=== PATIENT | female | born 1960 | race Caucasian/White ===

== ENCOUNTER 2017-06-18 14:52 | Inpatient (IN) | payer OTHER ==
[2017-06-18 17:07] VITALS: BMI 20.1
--- NOTE | 2017-06-18 20:59 | HP ---
CIWA Score - CIWA Score Nausea/Vomitin-Mild Nausea/No Vomiting Muscle Tremors: 3 Anxiety: 2 Agitation: 2 Paroxysmal Sweats: 3 Orientation: 0-Oriented Tacttile Disturbances: 0-None Auditory Disturbances: 1-Very Mild Visual Disturbances: 1-Very Mild Sensitivity Headache: 1-Very Mild CIWA-Ar Total Score: 14 Admission ROS S - HPI Chief Complaint: WITHDRAWAL SYMPTOMS Allergies/Adverse Reactions: Allergies Allergy/AdvReac Type Severity Reaction Status Date / Time No Known Allergies Allergy Verified 06/18/17 20:19 History of Present Illness: 57 Y.O. WOMAN WITH AN EXTENSIVE HISTORY OF ALCOHOL DEPENDENCE IS HERE SEEKING DETOX. SHE WAS LAST HERE IN 09/2016. SHE REPORTS HER LONGEST PERIOD OF SOBRIETY HAS BEEN 3 YEARS. SHE IS CURRENTLY ENROLLED IN [facility]. Exam Limitations: No Limitations - Ebola screening Have you traveled outside of the country in the last 21 days: No Have you been sick,other than usual withdrawal symptoms: No - Review of Systems Constitutional: Chills, Diaphoresis, Loss of Appetite, Changes in sleep, Unintentional Wgt. Loss EENT: reports: Blurred Vision, Double Vision, Tearing, Nose Congestion Respiratory: reports: No Symptoms reported Cardiac: reports: No Symptoms Reported GI: reports: No Symptoms Reported : reports: No Symptoms Reported Musculoskeletal: reports: No Symptoms Reported Integumentary: reports: No Symptoms Reported Neuro: reports: Headache, Tremors Endocrine: reports: No Symptoms Reported Hematology: reports: No Symptoms Reported Psychiatric: reports: Mood/Affect Appropiate, Orientated x3, other (INSOMNIA) Other Systems: Reviewed and Negative Patient History - Patient Medical History Hx Anemia: No Hx Asthma: Yes Hx Chronic Obstructive Pulmonary Disease (COPD): No Hx Cancer: No Hx Cardiac Disorders: No Hx Congestive Heart Failure: No Hx Hypertension: Yes (COZAAR) Hx Hypercholesterolemia: No Hx Pacemaker: No HX Cerebrovascular Accident: No Hx Seizures: No Hx Dementia: No Hx Diabetes: No Hx Gastrointestinal Disorders: No Hx Liver Disease: No Hx Genitourinary Disorders: No Hx Sexually Transmitted Disorders: Yes (SYPHILLIS-TREATED) Hx Renal Disease (ESRD): No Hx Thyroid Disease: Yes (HYPERTHYROIDISM) Hx Human Immunodeficiency Virus (HIV): No (last 03/17 negative) Hx Hepatitis C: No Hx Depression: Yes Hx Suicide Attempt: No Hx Bipolar Disorder: No Hx Schizophrenia: No - Patient Surgical History Past Surgical History: No Hx Neurologic Surgery: No Hx Cataract Extraction: No Hx Cardiac Surgery: No Hx Lung Surgery: No Hx Breast Surgery: No Hx Breast Biopsy: No Hx Abdominal Surgery: No Hx Appendectomy: No Hx Cholecystectomy: No Hx Genitourinary Surgery: No Hx Section: No Hx Orthopedic Surgery: No Anesthesia Reaction: No - PPD History Previous Implant?: Yes Documented Results: Negative w/proof Date: 09/14/16 Results: 0 PPD to be Administered?: No - Reproductive History Patient is a Female of Child Bearing Age (11 -55 yrs old): No - Smoking Cessation Smoking history: Current every day smoker Have you smoked in the past 12 months: Yes Aproximately how many cigarettes per day: 2 Hx Chewing Tobacco Use: No Initiated information on smoking cessation: Yes 'Breaking Loose' booklet given: 06/18/17 - Substance & Tx. History Hx Alcohol Use: Yes Hx Substance Use: Yes Substance Use Type: Alcohol, Cocaine Hx Substance Use Treatment: Yes (LAST DETOX: 09/2016; DENIES GOING TO REHAB EVER ) - Substances Abused Alcohol Route: Oral Frequency: Daily Amount used: liquor- 2 pints, beer- 1 six pack Age of first use: 15 Date of Last Use: 06/17/17 Cocaine Route: Smoking Frequency: Daily Amount used: 6 bags Age of first use: 37 Date of Last Use: 06/17/17 Family Disease History - Family Disease History Family History: Denies Admission Physical Exam BHS - Vital Signs Vital Signs: Vital Signs - 24 hr 06/18/17 17:02 Temperature 98.3 F Pulse Rate 90 Respiratory 16 Rate Blood Pressure 220/100 - Physical General Appearance: Yes: Thin, Tremorous, Anxious HEENTM: Yes: Hearing grossly Normal, Normocephalic, Normal Voice Respiratory: Yes: Chest Non-Tender, Lungs Clear, Normal Breath Sounds, No Respiratory Distress, No Accessory Muscle Use Neck: Yes: No masses,lesions,Nodules Breast: Yes: Breast Exam Deferred Cardiology: Yes: Regular Rhythm, Regular Rate Abdominal: Yes: Non Tender, Flat, Soft Genitourinary: Yes: Other (NO COMPLAINTS REPORTED) Back: Yes: Normal Inspection Musculoskeletal: Yes: Gait Steady, Pelvis Stable Extremities: Yes: Normal Capillary Refill, Normal Inspection, Normal Range of Motion, Non-Tender Neurological: Yes: Alert, Normal Mood/Affect, Normal Response Integumentary: Yes: Normal Color, Dry, Warm Lymphatic: Yes: Within Normal Limits - Diagnostic (1) Alcohol dependence with uncomplicated withdrawal Current Visit: Yes Status: Chronic (2) HTN (hypertension) Current Visit: Yes Status: Chronic Qualifiers: Hypertension type: essential hypertension Qualified Code(s): I10 - Essential (primary) hypertension (3) Hyperthyroidism Current Visit: Yes Status: Chronic (4) Opioid dependence on agonist therapy Current Visit: Yes Status: Chronic Cleared for Admission [facility] - Detox or Rehab [facility] Level of Care: Medically Managed Detox Regimen/Protocol: Librium [facility] Breath Alcohol Content Breath Alcohol Content: 0 Urine Pregancy Test - Result Urine Test Results: Negative- NO Line Present Urine Drug Screen - Results Drug Screen Negative: No Urine Drug Screen Results: JIMMY-Cocaine, MTD-Methadone
[2017-06-18] MEDS ORDERED: guaiFENesin/D-METHORPHAN HB 10 ML UNIT-DOSE CUPS PO PRN (21:02)
[2017-06-18] MEDS ORDERED: MAG HYDROX/AL HYDROX/SIMETH 30 ML UNIT-DOSE CUP PO PRN (21:02)
[2017-06-18] MEDS ORDERED: ACETAMINOPHEN 325 MG TABLET (FP) PO PRN (21:02)
[2017-06-18] MEDS ORDERED: MAGNESIUM HYDROX 2400MG/30ML ORAL SUSPENSION 30 ML CUP PO PRN (21:02)
[2017-06-18] MEDS ORDERED: P-EPHED 60MG/TRIPROLIDI 2.5MG TABLET PO PRN (21:02)
[2017-06-18] MEDS ORDERED: LOPERAMIDE HCL 2 MG CAPSULE PO PRN (21:02)
[2017-06-18] MEDS ORDERED: chlordiazePOXIDE HCL 25 MG CAPSULE PO ONE (21:02)
[2017-06-18] MEDS ORDERED: MENTHOL/PHENOL 1 EACH UD MM PRN (21:02)
[2017-06-18] MEDS ORDERED: IBUPROFEN 400 MG TABLET (FP) PO PRN (21:02)
[2017-06-18] MEDS ORDERED: MAGNESIUM CITRATE 300 ML BOTTLE PO PRN (21:02)
[2017-06-18] MEDS ORDERED: chlordiazePOXIDE HCL 25 MG CAPSULE PO PRN (21:02)
[2017-06-18] MEDS ORDERED: diphenhydrAMINE HCL 50 MG CAPSULE PO PRN (21:02)
[2017-06-18] MEDS ORDERED: cloNIDine HCL 0.1 MG TABLET PO ONE (21:05)
[2017-06-18] MEDS: THIAMINE HCL 100 MG TABLET (FP) PO SCH (21:55)
[2017-06-18] MEDS: chlordiazePOXIDE HCL 25 MG CAPSULE PO SCH (22:42)
[2017-06-18] MEDS: METHIMAZOLE 5 MG TABLET (FP) PO SCH (23:22)
[2017-06-19 00:14] LABS: URINE APPEARANCE SLCLOUDY; URINE BILIRUBIN NEGATIVE (NEGATIVE); URINE BLOOD NEGATIVE (NEGATIVE); URINE COLOR DKYELLOW; URINE GLUCOSE (UA) NEGATIVE (NEGATIVE); URINE KETONE NEGATIVE (NEGATIVE); URINE LEUK ESTERASE NEGATIVE (NEGATIVE); URINE NITRITE NEGATIVE (NEGATIVE)
[2017-06-19 00:26] LABS: URINE PROTEIN 2+ (NEGATIVE)
[2017-06-19 00:29] LABS: URINE BACTERIA RARE /hpf (NONE SEEN); URINE MUCUS RARE; URINE RBC 2 /hpf (0-3); URINE WBC 2 /hpf (3-5)
[2017-06-19] MEDS: METHIMAZOLE 5 MG TABLET (FP) PO SCH ×3 (05:53→22:23)
[2017-06-19] MEDS: chlordiazePOXIDE HCL 25 MG CAPSULE PO SCH ×4 (05:53→22:23)
[2017-06-19] MEDS: ALBUTEROL SO4 6.7 GM HFA INHALER IH SCH ×5 (05:56→23:00)
--- NOTE | 2017-06-19 10:00 | CONSULT ---
[facility] Psychiatric Consult - Data Date of interview: 06/19/17 Admission source: [facility] Identifying data: Readmission to [facility] for this 57 y/o female seeking detox treatment on for alcohol,cocaine (crack),xanax and opioid dependence.Patient is single,a mother of six,domiciled,unemployed and supported on food stamps. Substance Abuse History: Discussed with patient in this session.Ms Alejandro confirms this [facility] report. Smoking Cessation. Smoking history: Current every day smoker. Have you smoked in the past 12 months: Yes. Aproximately how many cigarettes per day: 2. Hx Chewing Tobacco Use: No. Initiated information on smoking cessation: Yes. 'Breaking Loose' booklet given: 06/18/17. - Substance & Tx. History. Hx Alcohol Use: Yes. Hx Substance Use: Yes. Substance Use Type : Alcohol, Cocaine. Hx Substance Use Treatment: Yes (LAST DETOX: 09/2016; DENIES GOING TO REHAB EVER). - Substances Abused. Alcohol. Route: Oral. Frequency: Daily. Amount used: liquor- 2 pints, beer- 1 six pack. Age of first use: 15. Date of Last Use: 06/17/17. Cocaine. Route: Smoking. Frequency: Daily. Amount used: 6 bags. Age of first use: 37. Date of Last Use : 06/17/17 Medical History: Significant for a history of hyperthyroidism,bronchial asthma, hypertension and past treatment for syphilis. Psychiatric History: Patient denies. Physical/Sexual Abuse/Trauma History: Patient denies. Additional Comment: Urine Drug Screen Results: JIMMY-Cocaine, MTD-Methadone.Noted. Mental Status Exam - Mental Status Exam Alert and Oriented to: Time, Place, Person Cognitive Function: Good Patient Appearance: Well Groomed (thin habitus) Mood: Hopeful, Euthymic Affect: Appropriate, Normal Range Patient Behavior: Fatigued, Appropriate, Cooperative Speech Pattern: Clear Voice Loudness: Normal Thought Process: Intact, Goal Oriented Thought Disorder: Not Present Hallucinations: Denies Suicidal Ideation: Denies Homicidal Ideation: Denies Insight/Judgement: Poor Sleep: Fair Appetite: Fair Muscle strength/Tone: Normal Gait/Station: Normal Psychiatric Findings - Problem List ([place] 1, 2,3) (1) Alcohol dependence with uncomplicated withdrawal Current Visit: Yes Status: Acute (2) Opioid dependence on agonist therapy Current Visit: Yes Status: Acute (3) Cocaine dependence Current Visit: Yes Status: Acute (4) Uncomplicated sedative, hypnotic or anxiolytic withdrawal Current Visit: Yes Status: Acute (5) HTN (hypertension) Current Visit: Yes Status: Chronic Qualifiers: Hypertension type: essential hypertension Qualified Code(s): I10 - Essential (primary) hypertension (6) Hyperthyroidism Current Visit: Yes Status: Chronic (7) Weight loss Current Visit: Yes Status: Chronic - Initial Treatment Plan Initial Treatment Plan: Psychoeducation is initiated in this session.Detoxification is under way.Observation.
[2017-06-19 10:20] LABS: MCHC 32.9 g/dl (32.0-36.0); MEAN CELL VOLUME 88.2 fl (80-96); MEAN PLT VOLUME 8.9 fl (7.5-11.1); PLATELET COUNT 181 K/MM3 (134-434); RDW 12.6 % (11.6-15.6); WHITE BLOOD COUNT 6.7 K/mm3 (4.0-10.0)
[2017-06-19] MEDS ORDERED: METHADONE HCL 40 MG DISPERSABLE TABLET PO ONE (10:20)
[2017-06-19 10:27] LABS: ALBUMIN 3.5 g/dl (3.4-5.0); ANION GAP 7 (8-16); CALCIUM 9.3 mg/dL (8.5-10.1); CO2 28 mmol/L (21-32); GLUCOSE,RANDOM 86 mg/dL (74-106)
--- NOTE | 2017-06-19 10:29 | EKG ---
Test Reason : Blood Pressure : / mmHG Vent. Rate : 069 BPM Atrial Rate : 069 BPM P-R Int : 136 ms QRS Dur : 092 ms QT Int : 444 ms P-R-T Axes : 081 078 032 degrees QTc Int : 475 ms NORMAL SINUS RHYTHM with VPCS IN A PATTERN OF BIGEMINY LEFT VENTRICULAR HYPERTROPHY WITH REPOLARIZATION ABNORMALITY ABNORMAL ECG Confirmed by ZAC MACDONALD MD ([id number]) on 06/19/2017 10:29:25 AM Referred By: Moustapha Serna Confirmed By:ZAC MACDONALD MD
[2017-06-19 10:31] LABS: ALK PHOS 84 U/L (45-117); BILIRUBIN,TOTAL 0.7 mg/dL (0.2-1.0); CREATININE 1.2 mg/dL (0.55-1.02); SGOT/AST 14 U/L (15-37); SGPT/ALT 24 U/L (12-78); TOT PROT 6.4 g/dl (6.4-8.2)
[2017-06-19] MEDS: NICOTINE 14 MG/24 HOURS TOPICAL PATCH TD SCH (10:39)
[2017-06-19] MEDS: PRENATAL VITAMINS W/ FOLIC ACID TABLET (FP) PO SCH (10:39)
[2017-06-19] MEDS: LOSARTAN POTASSIUM 50 MG TABLET (FP) PO SCH (10:39)
--- NOTE | 2017-06-19 12:13 | PN ---
[facility] CIWA - CIWA Score Nausea/Vomitin-No Nausea/No Vomiting Muscle Tremors: 3 Anxiety: 3 Agitation: 3 Paroxysmal Sweats: 3 Orientation: 0-Oriented Tacttile Disturbances: 0-None Auditory Disturbances: 0-None Visual Disturbances: 0-None Headache: 0-None Present CIWA-Ar Total Score: 12 BHS Progress Note (SOAP) Subjective: sweats little shakes interrupted sleep anxious Objective: 06/19/17 12:12 Vital Signs Temperature 97.2 F L 06/19/17 10:00 Pulse Rate 65 06/19/17 10:00 Respiratory Rate 18 06/19/17 10:00 Blood Pressure 132/74 06/19/17 10:00 O2 Sat by Pulse Oximetry (%) Laboratory Tests 06/18/17 06/19/17 06/19/17 23:56 07:00 07:00 WBC 6.7 RBC 4.68 Hgb 13.6 Hct 41.3 MCV 88.2 MCH 29.0 MCHC 32.9 RDW 12.6 D Plt Count 181 MPV 8.9 Sodium 141 Potassium 3.4 L Chloride 106 Carbon Dioxide 28 Anion Gap 7 L BUN 20 H D Creatinine 1.2 H Creat Clearance w eGFR 46.14 Random Glucose 86 D Calcium 9.3 Total Bilirubin 0.7 AST 14 L D ALT 24 Alkaline Phosphatase 84 Total Protein 6.4 Albumin 3.5 Urine Color Dkyellow Urine Appearance Slcloudy Urine pH 5.0 Urine Protein 2+ H Urine Glucose (UA) Negative Urine Ketones Negative Urine Blood Negative Urine Nitrite Negative Urine Bilirubin Negative Urine Urobilinogen 2.0 H Ur Leukocyte Esterase Negative Urine RBC 2 Urine WBC 2 Ur Epithelial Cells Few Urine Bacteria Rare Urine Mucus Rare low potassium 3.4; k-dur 20meq x 4 days ordered awake/alert ambulating no acute distress Assessment: 06/19/17 12:13 withdrawal sx Plan: continue detox increase fluids k-dur ordered
[2017-06-19] MEDS ORDERED: POTASSIUM CHLORIDE TABS 20 MEQ TABLET.ER (FP) PO SCH (12:15)
[2017-06-19] MEDS: POTASSIUM CHLORIDE TABS 20 MEQ TABLET.ER (FP) PO SCH (12:59)
[2017-06-19] MEDS: THIAMINE HCL 100 MG TABLET (FP) PO SCH (22:23)
[2017-06-20] MEDS: chlordiazePOXIDE HCL 25 MG CAPSULE PO SCH ×3 (06:02→17:50)
[2017-06-20] MEDS: METHADONE HCL 40 MG DISPERSABLE TABLET PO SCH (06:03)
[2017-06-20] MEDS: ALBUTEROL SO4 6.7 GM HFA INHALER IH SCH ×4 (06:04→23:25)
[2017-06-20] MEDS: METHIMAZOLE 5 MG TABLET (FP) PO SCH ×3 (06:04→22:39)
[2017-06-20] MEDS: PRENATAL VITAMINS W/ FOLIC ACID TABLET (FP) PO SCH (10:55)
[2017-06-20] MEDS: LOSARTAN POTASSIUM 50 MG TABLET (FP) PO SCH (10:56)
[2017-06-20] MEDS: NICOTINE 14 MG/24 HOURS TOPICAL PATCH TD SCH (10:56)
[2017-06-20] MEDS: POTASSIUM CHLORIDE TABS 20 MEQ TABLET.ER (FP) PO SCH (10:56)
--- NOTE | 2017-06-20 15:01 | PN ---
[facility] CIWA - CIWA Score Nausea/Vomitin Muscle Tremors: 3 Anxiety: 3 Agitation: 2 Paroxysmal Sweats: 1-Minimal Palms Moist Orientation: 0-Oriented Tacttile Disturbances: 1-Very Mild Itch/Numbness Auditory Disturbances: 1-Very Mild Visual Disturbances: 1-Very Mild Sensitivity Headache: 2-Mild CIWA-Ar Total Score: 17 BHS Progress Note (SOAP) Subjective: alert,irritable,anxious,interrupted sleep,tremor Objective: 06/20/17 14:59 Vital Signs Temperature 97.7 F 06/20/17 10:02 Pulse Rate 64 06/20/17 10:02 Respiratory Rate 18 06/20/17 10:02 Blood Pressure 120/65 06/20/17 10:02 O2 Sat by Pulse Oximetry (%) ekg on 06/19/17 showed nsr with vpcs no chest pain,no sob,no dizziness Laboratory Last Values WBC 6.7 K/mm3 (4.0-10.0) 06/19/17 07:00 RBC 4.68 M/mm3 (3.60-5.2) 06/19/17 07:00 Hgb 13.6 GM/dL (10.7-15.3) 06/19/17 07:00 Hct 41.3 % (32.4-45.2) 06/19/17 07:00 MCV 88.2 fl (80-96) 06/19/17 07:00 MCH 29.0 pg (25.7-33.7) 06/19/17 07:00 MCHC 32.9 g/dl (32.0-36.0) 06/19/17 07:00 RDW 12.6 % (11.6-15.6) D 06/19/17 07:00 Plt Count 181 K/MM3 (134-434) 06/19/17 07:00 MPV 8.9 fl (7.5-11.1) 06/19/17 07:00 Sodium 141 mmol/L (136-145) 06/19/17 07:00 Potassium 3.4 mmol/L (3.5-5.1) L 06/19/17 07:00 Chloride 106 mmol/L (98-107) 06/19/17 07:00 Carbon Dioxide 28 mmol/L (21-32) 06/19/17 07:00 Anion Gap 7 (8-16) L 06/19/17 07:00 BUN 20 mg/dL (7-18) H D 06/19/17 07:00 Creatinine 1.2 mg/dL (0.55-1.02) H 06/19/17 07:00 Creat Clearance w eGFR 46.14 (>60) 06/19/17 07:00 Random Glucose 86 mg/dL (74-106) D 06/19/17 07:00 Calcium 9.3 mg/dL (8.5-10.1) 06/19/17 07:00 Total Bilirubin 0.7 mg/dL (0.2-1.0) 06/19/17 07:00 AST 14 U/L (15-37) L D 06/19/17 07:00 ALT 24 U/L (12-78) 06/19/17 07:00 Alkaline Phosphatase 84 U/L (45-117) 06/19/17 07:00 Total Protein 6.4 g/dl (6.4-8.2) 06/19/17 07:00 Albumin 3.5 g/dl (3.4-5.0) 06/19/17 07:00 Urine Color Dkyellow 06/18/17 23:56 Urine Appearance Slcloudy 06/18/17 23:56 Urine pH 5.0 (5.0-8.0) 06/18/17 23:56 Ur Specific Whitt 1.025 (1.005-1.025) 06/18/17 23:56 Urine Protein 2+ (NEGATIVE) H 06/18/17 23:56 Urine Glucose (UA) Negative (NEGATIVE) 06/18/17 23:56 Urine Ketones Negative (NEGATIVE) 06/18/17 23:56 Urine Blood Negative (NEGATIVE) 06/18/17 23:56 Urine Nitrite Negative (NEGATIVE) 06/18/17 23:56 Urine Bilirubin Negative (NEGATIVE) 06/18/17 23:56 Urine Urobilinogen 2.0 mg/dL (0.2-1.0) H 06/18/17 23:56 Ur Leukocyte Esterase Negative (NEGATIVE) 06/18/17 23:56 Urine RBC 2 /hpf (0-3) 06/18/17 23:56 Urine WBC 2 /hpf (3-5) 06/18/17 23:56 Ur Epithelial Cells Few /hpf (FEW) 06/18/17 23:56 Urine Bacteria Rare /hpf (NONE SEEN) 06/18/17 23:56 Urine Mucus Rare 06/18/17 23:56 RPR Titer Nonreactive (NONREACTIVE) 06/19/17 07:00 Hepatitis C Antibody <0.1 s/co ratio (0.0-0.9) 06/18/17 07:00 06/20/17 15:02 Assessment: 06/20/17 15:02 withdrawal symptom Plan: continue detox,repeat ekg now,k dur 20 meq po now then daily,repeat cmp in am
--- NOTE | 2017-06-20 15:25 | PN ---
BHS Progress Note Note: repeat ekg nsr,normal ecg,lvh
[2017-06-20] MEDS: chlordiazePOXIDE 5 MG CAPSULE PO SCH (22:39)
[2017-06-20] MEDS: THIAMINE HCL 100 MG TABLET (FP) PO SCH (22:39)
[2017-06-21] MEDS: METHIMAZOLE 5 MG TABLET (FP) PO SCH ×3 (05:59→22:35)
[2017-06-21] MEDS: chlordiazePOXIDE 5 MG CAPSULE PO SCH ×3 (06:02→17:37)
[2017-06-21] MEDS: METHADONE HCL 40 MG DISPERSABLE TABLET PO SCH (06:03)
[2017-06-21] MEDS: ALBUTEROL SO4 6.7 GM HFA INHALER IH SCH ×3 (06:06→19:51)
[2017-06-21] MEDS: PRENATAL VITAMINS W/ FOLIC ACID TABLET (FP) PO SCH (10:36)
[2017-06-21] MEDS: POTASSIUM CHLORIDE TABS 20 MEQ TABLET.ER (FP) PO SCH (10:37)
[2017-06-21] MEDS: LOSARTAN POTASSIUM 50 MG TABLET (FP) PO SCH (10:37)
[2017-06-21] MEDS: NICOTINE 14 MG/24 HOURS TOPICAL PATCH TD SCH (10:37)
[2017-06-21 10:53] LABS: CALCIUM 8.6 mg/dL (8.5-10.1)
[2017-06-21 10:59] LABS: ALBUMIN 3.2 g/dl (3.4-5.0); ALK PHOS 75 U/L (45-117); ANION GAP 6 (8-16); BILIRUBIN,TOTAL 0.3 mg/dL (0.2-1.0); CO2 27 mmol/L (21-32); CREATININE 1.2 mg/dL (0.55-1.02); GLUCOSE,RANDOM 62 mg/dL (74-106); SGOT/AST 11 U/L (15-37); SGPT/ALT 17 U/L (12-78); TOT PROT 5.9 g/dl (6.4-8.2)
--- NOTE | 2017-06-21 12:54 | EKG ---
Test Reason : Blood Pressure : / mmHG Vent. Rate : 060 BPM Atrial Rate : 060 BPM P-R Int : 128 ms QRS Dur : 100 ms QT Int : 478 ms P-R-T Axes : 072 081 034 degrees QTc Int : 478 ms NORMAL SINUS RHYTHM MODERATE VOLTAGE CRITERIA FOR LVH, MAY BE NORMAL VARIANT BORDERLINE ECG WHEN COMPARED WITH ECG OF 18-JUN-2017 20:59, NONSPECIFIC T WAVE ABNORMALITY HAS REPLACED INVERTED T WAVES IN INFERIOR LEADS Confirmed by ZAHEER LOWE MD ([id number]) on 06/21/2017 12:54:01 PM Referred By: Moustapha Serna Confirmed By:ZAHEER LOWE MD
--- NOTE | 2017-06-21 15:37 | PN ---
S Progress Note (SOAP) Subjective: ALERT,IRRITABLE,ANXIOUS,INTERRUPTED SLEEP Objective: 06/21/17 15:36 Vital Signs Temperature 96.5 F L 06/21/17 14:12 Pulse Rate 66 06/21/17 14:12 Respiratory Rate 16 06/21/17 14:12 Blood Pressure 172/63 06/21/17 14:12 O2 Sat by Pulse Oximetry (%) Assessment: 06/21/17 15:36 WITHDRAWAL SYMPTOM Plan: CONTINUE DETOX,DISCHARGE IN AM
--- NOTE | 2017-06-21 15:39 | PN ---
S Progress Note Note: Laboratory Results - last 24 hr 06/21/17 07:45 Sodium 141 Potassium 4.1 D Chloride 108 H Carbon Dioxide 27 Anion Gap 6 L BUN 21 H Creatinine 1.2 H Creat Clearance w eGFR 46.14 Random Glucose 62 L D Calcium 8.6 Total Bilirubin 0.3 D AST 11 L D ALT 17 D Alkaline Phosphatase 75 Total Protein 5.9 L Albumin 3.2 L K IS 4.1
[2017-06-21] MEDS: chlordiazePOXIDE HCL 10 MG CAPSULE PO SCH (22:35)
[2017-06-21] MEDS: THIAMINE HCL 100 MG TABLET (FP) PO SCH (22:35)
[2017-06-22] MEDS: ALBUTEROL SO4 6.7 GM HFA INHALER IH SCH ×3 (00:25→12:05)
[2017-06-22] MEDS: METHIMAZOLE 5 MG TABLET (FP) PO SCH ×2 (05:54→14:04)
[2017-06-22] MEDS: METHADONE HCL 40 MG DISPERSABLE TABLET PO SCH (05:54)
[2017-06-22] MEDS: chlordiazePOXIDE HCL 10 MG CAPSULE PO SCH ×2 (05:54→12:03)
[2017-06-22 06:59] VITALS: TEMP 98.2
[2017-06-22] MEDS ORDERED: cloNIDine HCL 0.1 MG TABLET PO ONE (09:00)
[2017-06-22] MEDS: hydrOXYzine PAMOATE 50 MG CAPSULE (FP) PO PRN ×2 (09:03→14:04)
[2017-06-22] MEDS: LOSARTAN POTASSIUM 50 MG TABLET (FP) PO SCH (09:03)
[2017-06-22] MEDS: PRENATAL VITAMINS W/ FOLIC ACID TABLET (FP) PO SCH (10:05)
[2017-06-22] MEDS: POTASSIUM CHLORIDE TABS 20 MEQ TABLET.ER (FP) PO SCH (10:05)
--- NOTE | 2017-06-22 10:13 | DS ---
[facility] Detox Discharge Summary Admission Date: 06/18/17 Discharge Date: 06/22/17 - History Present History: Alcohol Dependence, Cocaine Dependence, Opioid Dependence, Sedative Dependence, MMTP - Physical Exam Results Vital Signs: Vital Signs Temperature 98.2 F 06/22/17 06:59 Pulse Rate 66 06/22/17 06:59 Respiratory Rate 18 06/22/17 06:59 Blood Pressure 144/71 06/22/17 06:59 O2 Sat by Pulse Oximetry (%) - Treatment Hospital Course: Detox Protocol Followed, Detoxed Safely, Responded well, Discharged Condition Good, Rehab Referral Accepted - Medication Discharge Medications: Ambulatory Orders Methimazole [Tapazole -] 5 mg PO TID #90 tablet 10/16/15 Albuterol Sulfate Inhaler - [Ventolin HFA Inhaler -] 2 inh PO PRN #0 inh Losartan Potassium [Cozaar -] 50 mg PO DAILY #30 tablet 06/22/17 - Diagnosis (1) Alcohol dependence with uncomplicated withdrawal Current Visit: Yes Status: Chronic (2) Cocaine dependence Current Visit: Yes Status: Chronic Qualifiers: Substance use status: uncomplicated Qualified Code(s): F14.20 - Cocaine dependence, uncomplicated (3) Opioid dependence on agonist therapy Current Visit: Yes Status: Acute (4) Uncomplicated sedative, hypnotic or anxiolytic withdrawal Current Visit: Yes Status: Chronic (5) HTN (hypertension) Current Visit: Yes Status: Chronic Qualifiers: Hypertension type: essential hypertension Qualified Code(s): I10 - Essential (primary) hypertension (6) Hyperthyroidism Current Visit: Yes Status: Chronic (7) Left against medical advice Current Visit: Yes Status: Chronic (8) Weight loss Current Visit: Yes Status: Chronic (9) Abnormal EKG Current Visit: No Status: Acute (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
[2017-06-22] MEDS: NICOTINE 14 MG/24 HOURS TOPICAL PATCH TD SCH (12:05)
[2017-06-22 15:59] VITALS: BP 141/73; PULSE 72
== END 2017-06-22 17:06 | disposition home or self-care (01) | DRG 773 ==
LOC: YASAS 14:52 → Y6N 19:38
PROVIDERS: ADMIT Internal Medicine Addiction Medicine; ATTEND Internal Medicine Addiction Medicine
PROC: HZ2ZZZZ Detoxification Services for Substance Abuse Treatment (ICD-10-PCS; principal; 2017-06-18)
DX: F10.230 Alcohol dependence with withdrawal, uncomplicated (principal); F11.20 Opioid dependence, uncomplicated; F13.230 Sedative, hypnotic or anxiolytic dependence with withdrawal, uncomplicated; F14.20 Cocaine dependence, uncomplicated; F17.210 Nicotine dependence, cigarettes, uncomplicated; I10 Essential (primary) hypertension; E05.90 Thyrotoxicosis, unspecified without thyrotoxic crisis or storm; R94.31 Abnormal electrocardiogram [ECG] [EKG]; J45.909 Unspecified asthma, uncomplicated; Z87.42 Personal history of other diseases of the female genital tract; Z87.898 Personal history of other specified conditions
CPT/HCPCS: 36415; 80053; 81003; 81015; 85027; 86593; 86803; 93005; 93010